=== PATIENT | male | born 1970 | race Hispanic/Latino ===

== ENCOUNTER → 2017-01-04 | Outpatient (CLI) | payer OTHER ==
--- NOTE | 2017-01-08 15:38 | REP ---
CT PELVIS WITHOUT IV CONTRAST: CT contrast performed in the axial plane without IV contrast, with sagittal and coronal reconstruction images performed. Correlation made with prior plain films performed 10/11/2016 which show a well defined lucent lesion in the left iliac bone superolaterally. Today's CT scan shows the bone lesion in the superolateral left iliac bone to be anteriorly located in the cortex of the left iliac bone. It measures about 1 cm in diameter. The borders are smooth and sclerotic and the lesion is very well defined. This is consistent with a benign cortical bone lesion. There is no associated soft tissue mass identified. Mild to moderate arthritic changes are seen at the sacroiliac joints bilaterally. There is mild joint space narrowing and subchondral sclerosis bilaterally. A large osteophyte extends across the left sacroiliac joint anteriorly from the left iliac bone. Benign bone island is seen in the medial aspect of the left iliac bone inferiorly. There is no fracture or dislocation of the visualized osseous structures. There is a small right inguinal hernia containing fat. No intrapelvic abnormality is seen. No adenopathy is seen in the pelvis. 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 Degenerative changes of the sacroiliac joints. Small right inguinal hernia containing fat. Signed by Kwabena Strauss MD 01/08/2017 04:46 P
== END ==
LOC: M RAD 10:43
PROVIDERS: ATTEND Physician Assistant Surgical
DX: M89.9 Disorder of bone, unspecified (principal); M47.898 Other spondylosis, sacral and sacrococcygeal region